=== PATIENT | male | born 1975 | race Two or more races ===

== ENCOUNTER 2024-08-27 20:23 | Emergency (ER) | payer SELFPAY ==
[~2024-08-27] VITALS: Ht 157.5 cm; Wt 66.2 kg
[2024-08-27] MEDS: HYDROcodone-ACET 5/325MG TAB PO ONE (22:34)
[2024-08-27] MEDS: KETOROLAC TROMETH 60MG/2ML VIAL IM ONE (22:34)
[2024-08-28 00:09] VITALS: BP 111/77; PULSE 93; RESP 16; TEMP 98.6; O2SAT 95
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
[2024-08-28] MEDS ORDERED: METH4PAK PO (00:30)
[2024-08-28] MEDS ORDERED: TIZA-142 PO (00:30)
== END 2024-08-28 00:59 | disposition home or self-care (01) ==
LOC: ER 20:23
DX: S20.212A Contusion of left front wall of thorax, initial encounter (principal); V89.2XXA Person injured in unspecified motor-vehicle accident, traffic, initial encounter; Y93.89 Activity, other specified; Y92.89 Other specified places as the place of occurrence of the external cause; Y99.8 Other external cause status
CPT/HCPCS: 71101; 96372; 99283; J1885